=== PATIENT | female | born 1975 | race Caucasian/White ===

== ENCOUNTER 2016-11-28 04:27 | Inpatient (IN) | payer BC ==
[~2016-11-28] VITALS: Ht 172.7 cm; Wt 92.1 kg
[2016-11-28] VITALS (18 sets, daily range): BP systolic 93–127; BP diastolic 50–76
[~2016-11-28 04:27] MED LIST: ENDOCET 5-3251 EACH PO; EXPECTA PRENAT1 EACH PO; IBUPROFEN800 MG PO
[2016-11-28 05:32] LABS: BASOPHIL COUNT 0.1 K/uL (0-0.1); EOSINOPHIL (%) 1.1 % (0-5); EOSINOPHIL COUNT 0.1 K/uL (0-0.3); HEMATOCRIT 33.8 % (36.0-46.0); IMMATURE GRANULOCYTE (%) 0.8 % (0.0-0.7); IMMATURE GRANULOCYTE COUNT 0.1 K/uL; INSTRUMENT ABS NEUTROPHIL CT 6.1 K/uL; LYMPHOCYTE COUNT 1.7 K/uL (1.0-2.8); MCH 31.5 PG (29.0-34.0); MCHC 34.6 G/DL (30.0-36.0); MCV 91.1 FL (83-99); MEAN PLAT.VOLUME 10.9 uM^3 (9.5-12.4); MONOCYTE COUNT 0.6 K/uL (0-0.8); NEUTROPHIL (%) 70.7 % (45-76); NEUTROPHIL COUNT 6.1 K/uL (1.8-6.4); PLATELET COUNT 181 K/uL (156-360); RBC DIS.WIDTH-CV 13.1 % (11.8-14.6); RED BLOOD COUNT 3.71 M/uL (3.80-5.20); WHITE BLOOD COUNT 8.6 K/uL (4.1-10.2)
[2016-11-28] MEDS ORDERED: IBUPROFEN800 MG PO (19:38)
[2016-11-29 07:18] VITALS: BP 111/64
[2016-11-29 14:49] VITALS: BP 102/57
[2016-11-29 22:50] VITALS: BP 118/58
[2016-11-30 07:41] VITALS: BP 103/69
== END 2016-11-30 14:30 | disposition home or self-care (01) | DRG 774 ==
LOC: LDRP-OP 04:27 → 2WEST 04:28 → LDRP-OP 01-01 13:44
PROVIDERS: Nurse Practitioner
PROC: 10E0XZZ Delivery of Products of Conception, External Approach (ICD-10-PCS; principal; 2016-11-28)
DX: O99.824 Streptococcus B carrier state complicating childbirth (principal); O99.42 Diseases of the circulatory system complicating childbirth; I48.91 Unspecified atrial fibrillation; Z37.0 Single live birth; Z3A.39 39 weeks gestation of pregnancy; Z87.410 Personal history of cervical dysplasia
CPT/HCPCS: 85025; J0690; J3370; J7120

== ENCOUNTER 2016-12-06 10:41 | Day surgery (SDC) | payer BC ==
[~2016-12-06] VITALS: Ht 172.7 cm; Wt 86.5 kg
[2016-12-06 12:17] LABS: HEMATOCRIT 40.3 % (36.0-46.0); MCH 30.9 PG (29.0-34.0); MCV 93.7 FL (83-99); MEAN PLAT.VOLUME 10.1 uM^3 (9.5-12.4); PLATELET COUNT 224 K/uL (156-360); RBC DIS.WIDTH-SD 44.6 % (39-53); WHITE BLOOD COUNT 8.1 K/uL (4.1-10.2)
[2016-12-06 12:27] LABS: CHLORIDE 109 mEq/L (99-109); POTASSIUM 4.2 mEq/L (3.7-5.4); SODIUM 140 mEq/L (136-147)
[2016-12-06 12:29] LABS: GLUCOSE 74 mg/dL (70-99)
[2016-12-06 12:31] LABS: ANION GAP 9 MEQ/L (2-14); TOTAL BILIRUBIN 0.5 mg/dL (0.0-1.0)
[2016-12-06 12:33] LABS: ALKALINE PHOSPHATASE 84 IU/L (3-129); GFR ESTIMATE (CALCULATED) > 59 mL/min/
[2016-12-06 12:34] LABS: UREA NITROGEN (BUN) 8 mg/dL (9-23)
[2016-12-06 12:36] LABS: LIPASE 9 U/L (1.0-51.0)
[2016-12-06 13:30] LABS: ADD MIUA? YES; BILIRUBIN NEGATIVE; BLOOD SMALL; COLOR STRAW ((YELLOW)); GLUCOSE (STRIP) NEGATIVE; KETONES 5; LEUKOCYTES NEGATIVE; NITRITE NEGATIVE; PROTEIN (STRIP) NEGATIVE; SPECIFIC GRAVITY 1.023 (1.000-1.030); UROBILINOGEN 0.2 MG/DL (0.2-1.0)
[2016-12-06 13:34] LABS: BACTERIA NONE SEEN /HPF; EPITHELIAL CELLS RARE /HPF; MUCUS NONE SEEN /LPF; RED BLOOD CELLS 0-5 /HPF (0-5); UCUL ADDED? NO; WHITE BLOOD CELLS 0-5 /HPF (0-5)
[2016-12-06 14:08] LABS: BASOPHIL COUNT 0.1 K/uL (0-0.1); EOSINOPHIL COUNT 0.2 K/uL (0-0.3); IMMATURE GRANULOCYTE (%) 0.4 % (0.0-0.7); INSTRUMENT ABS NEUTROPHIL CT 5.1 K/uL; MONOCYTE (%) 7.1 % (3-12); MONOCYTE COUNT 0.6 K/uL (0-0.8); NEUTROPHIL (%) 65.2 % (45-76); NEUTROPHIL COUNT 5.1 K/uL (1.8-6.4)
[2016-12-06 20:58] VITALS: BP 117/60
[2016-12-07 00:17] VITALS: BP 117/64
[2016-12-07 03:15] VITALS: BP 101/55
[2016-12-07 07:16] VITALS: BP 121/64
[2016-12-07 07:41] LABS: ANION GAP 8 MEQ/L (2-14); CHLORIDE 110 MEQ/L (99-109); GFR ESTIMATE (CALCULATED) > 59 mL/min/; GLUCOSE 76 mg/dL (70-99); POTASSIUM 3.9 MEQ/L (3.7-5.4); SAMPLE HEMOLYSIS CHECK 0; SAMPLE ICTERIC CHECK 0; SAMPLE LIPEMIA CHECK 0; SODIUM 139 MEQ/L (136-147); UREA NITROGEN (BUN) 10 mg/dL (9-23)
[2016-12-07 07:45] LABS: MCH 31.1 PG (29.0-34.0); MCHC 33.4 G/DL (30.0-36.0); MCV 93.1 FL (83-99); MEAN PLAT.VOLUME 10.7 uM^3 (9.5-12.4); PLATELET COUNT 198 K/uL (156-360); RBC DIS.WIDTH-CV 12.8 % (11.8-14.6); RBC DIS.WIDTH-SD 43.9 % (39-53); RED BLOOD COUNT 3.76 M/uL (3.80-5.20); WHITE BLOOD COUNT 7.4 K/uL (4.1-10.2)
[2016-12-07 11:36] VITALS: BP 113/57
[2016-12-07 16:24] VITALS: BP 109/60
[2016-12-07] MEDS ORDERED: IBUPROFEN800 MG PO (20:08)
[2016-12-07 20:13] VITALS: BP 121/66
[2016-12-07] MEDS ORDERED: MOTRIN600 MG PO (20:14)
== END 2016-12-07 20:38 | disposition home or self-care (01) ==
LOC: EME 10:41 → SDC 18:41 → 2SOUTH 20:09 → 2EAST 20:09 → 2SOUTH 20:09 → 2EAST 20:44
PROVIDERS: Thoracic Surgery (Cardiothoracic Vascular Surgery)
PROC: 0DTJ0ZZ Resection of Appendix, Open Approach (ICD-10-PCS; principal; 2016-12-06)
DX: O99.63 Diseases of the digestive system complicating the puerperium (principal); K35.80 Unspecified acute appendicitis; R11.0 Nausea; Z88.0 Allergy status to penicillin; Z82.49 Family history of ischemic heart disease and other diseases of the circulatory system
CPT/HCPCS: 80048; 80053; 81003; 83690; 85025; 85027; 88304; 99281; 99284; G0378; J0131; J0330; J1100; J1335; J1885; J2250; J2405; J3010; J7030; J7050; J7120